=== PATIENT | female | born 1980 ===

== ENCOUNTER 2017-01-18 14:55 | Emergency (ER) | payer OTHER ==
[2017-01-18 14:55] VITALS: BMI 30.4
[2017-01-18 15:06] VITALS: BP 118/79; PULSE 77; RESP 16; TEMP 98.2; O2SAT 97
[2017-01-18] MEDS ORDERED: Lidocaine 1% Inj (20ml) IJ STA (15:13)
--- NOTE | 2017-01-18 15:13 | ED PDOC ---
HPI: Wound Care - HPI Time Seen by Provider: 01/18/17 14:56 Chief Complaint (Nursing): Abnormal Skin Integrity Chief Complaint (Provider): Laceration to right thumb History Per: Patient Exam Limitations: no limitations Onset/Duration Of Symptoms: Hrs (x7-8) Current Symptoms Are (Timing): Still Present Additional Complaint(s): Nury Woodward is a 36 year old female presenting to the ED for an evaluation of a laceration to the inner aspect of her right thumb occurring approximately around 7-8 AM this morning prior to arrival while the patient was washing a cup of glass in the sink. The patient reports pain to her right thumb. She denies taking anything for the pain. Of note, the patient is right hand dominant and Tetanus is up to date. PMD: Bhargav Marshall MD Past Medical History Reviewed: Historical Data, Nursing Documentation, Vital Signs Vital Signs: Last Vital Signs Temp 98.2 F 01/18/17 15:03 Pulse 77 01/18/17 15:03 Resp 16 01/18/17 15:03 BP 118/79 01/18/17 15:03 Pulse Ox 97 01/18/17 15:03 - Medical History PMH: HIV Denies: Chronic Kidney Disease - Surgical History Surgical History: Appendectomy - Family History Family History: States: Unknown Family Hx - Home Medications Home Medications: Ambulatory Orders Medication Instructions Recorded Darunavir Ethanolate [Prezista] 600 mg PO BID 06/12/16 Dolutegravir Sodium [Tivicay] 50 mg PO BID 06/12/16 Ritonavir [Norvir] 100 mg PO BID 06/12/16 Terbinafine HCl [Terbinafine HCl] 250 mg PO DAILY 06/12/16 - Allergies Allergies/Adverse Reactions: Allergies Allergy/AdvReac Type Severity Reaction Status Date / Time sulfamethoxazole Allergy RASH Verified 04/08/16 08:14 [From Bactrim] trimethoprim [From Bactrim] Allergy RASH Verified 04/08/16 08:14 Review of Systems ROS Statement: Except As Marked, All Systems Reviewed And Found Negative Musculoskeletal: Positive for: Hand Pain (laceration to inner aspect of right thumb associated with pain ) Physical Exam - Reviewed Nursing Documentation Reviewed: Yes Vital Signs Reviewed: Yes - Physical Exam Appears: Positive for: Non-toxic, No Acute Distress Head Exam: Positive for: ATRAUMATIC, NORMOCEPHALIC Extremity: Positive for: Normal ROM (full ROM to right thumb ), Deformity ( laceration lunar shaped with partial thickness; no active bleeding; 1 inch long) , Swelling (minor swelling noted to inner aspect of right thumb). Negative for : Other (no visible foreign body noted ) Neurologic/Psych: Positive for: Alert, Oriented - ECG O2 Sat by Pulse Oximetry: 97 (RA) Pulse Ox Interpretation: Normal Procedure: Wound Repair - Time Out Time Out: Side verified, Site verified, Patient ID confirmed, Sterile procedures obs. - Consent Obtained Consent obtained: Verbal - Performed by Performed by: Mid-level Provider - Indications Indication(s):: Laceration - Location Finger:: Right, Thumb (inner aspect) Dimensions Length cm: 1 inch Depth:: Epidermis - Anesthetic Technique Anesthetic Technique: Local (3.5cc) Local/Regional Anesthetic:: Lidocaine 1% - Debris Debris:: None - Irrigated Irrigated with ml of normal saline: 100 ccs of betadiene - Complexity Complexity:: Simple (one layer) (interrupted) - Wound repair method Sutures:: # (8), Size (5-0), Type (nylon) - Patient tolerated procedure Patient Tolerated Procedure:: Well (splint provided) Medical Decision Making Medical Decision Making: Time: 14:56 Impression: Laceration to inner aspect of right thumb Plan: * Wound Care * X-ray to rule out foreign body * Lidocaine 1% (20 ml) * [RAD] Hand Right 3 Views Instructed patient to return to ED in 8 days for suture removal. Wound care instructions given. Patient tolerated procedure well. Scribe Attestation: Documented by Chioma Lo, acting as a scribe for Joana De La Vega PA-C. Provider Scribe Attestation: All medical record entries made by the Scribe were at my direction and personally dictated by me. I have reviewed the chart and agree that the record accurately reflects my personal performance of the history, physical exam, medical decision making, and the department course for this patient. I have also personally directed, reviewed, and agree with the discharge instructions and disposition. Disposition - Clinical Impression Clinical Impression: Laceration - Patient ED Disposition Is Patient to be Admitted: No Counseled Patient/Family Regarding: Studies Performed, Diagnosis, Need For Followup, Rx Given - Disposition Referrals: Bin Schaeffer MD [Medical Doctor] - Disposition: Routine/Home Disposition Time: 13:36 Condition: STABLE Additional Instructions: keep area dry keep splint on to prevent suture from coming apart return in 7-8days for removal. do not apply to tightly of compression on area-it will cause an infection allow air to be exposed to area oxygen will help heal the wound. mantener seco el asif mantener la frula para evitar que la sutura se separe vuelta en 7-8days para la eliminacin. no se aplique fuertemente a la compresin en el asif: causar vijay infeccin permitir que el aire sea expuesto al oxgeno del asif ayudar a curar la herida. Instructions: Care For Your Stitches (ED), Laceration (ED) Forms: [employer] (Indonesian), [facility] ED School/Work Excuse Print Language: CHINESE
[2017-01-18] MEDS ORDERED: Lidocaine 1% Inj (20ml) ONE (15:14)
--- NOTE | 2017-01-18 16:06 | RAD ---
PROCEDURE: Right Hand Radiographs. HISTORY: trauma attn fifth digit COMPARISON: None available. FINDINGS: BONES: No acute displaced fracture. JOINTS: No dislocation. SOFT TISSUES: Unremarkable. No evidence of radiopaque foreign body. OTHER FINDINGS: None. IMPRESSION: No acute displaced fracture, dislocation, or significant joint effusion identified. If symptoms persist, or if there is continued clinical concern, x-ray follow-up in 7-10 days should be considered.
== END 2017-01-18 16:36 | disposition home or self-care (01) ==
LOC: H.ER 14:55
DX: S61.011A Laceration without foreign body of right thumb without damage to nail, initial encounter (principal); W25.XXXA Contact with sharp glass, initial encounter; Y92.000 Kitchen of unspecified non-institutional (private) residence as the place of occurrence of the external cause

== ENCOUNTER 2017-01-25 13:37 | Emergency (ER) | payer OTHER, SELFPAY ==
[2017-01-25 13:37] VITALS: BMI 30.4
[2017-01-25 13:46] VITALS: BP 131/63; PULSE 99; RESP 16; TEMP 97.3; O2SAT 99
--- NOTE | 2017-01-25 14:01 | ED PDOC ---
HPI: Wound Care - HPI Time Seen by Provider: 01/25/17 13:47 Chief Complaint (Nursing): Suture/Staple Removal History Per: Patient Additional Complaint(s): Pt. had sutures placed in the R hand 7 days ago and is now here for suture removal. Denies pain, fever, discharge. Past Medical History Vital Signs: Last Vital Signs Temp 97.3 F L 01/25/17 13:44 Pulse 99 H 01/25/17 13:44 Resp 16 01/25/17 13:44 BP 131/63 01/25/17 13:44 Pulse Ox 99 01/25/17 13:44 - Medical History PMH: HIV Denies: Chronic Kidney Disease - Surgical History Surgical History: Appendectomy - Family History Family History: States: Unknown Family Hx - Immunization History Hx Tetanus Toxoid Vaccination: Yes - Home Medications Home Medications: Ambulatory Orders Medication Instructions Recorded Darunavir Ethanolate [Prezista] 600 mg PO BID 06/12/16 Dolutegravir Sodium [Tivicay] 50 mg PO BID 06/12/16 Ritonavir [Norvir] 100 mg PO BID 06/12/16 Terbinafine HCl [Terbinafine HCl] 250 mg PO DAILY 06/12/16 - Allergies Allergies/Adverse Reactions: Allergies Allergy/AdvReac Type Severity Reaction Status Date / Time sulfamethoxazole Allergy RASH Verified 04/08/16 08:14 [From Bactrim] trimethoprim [From Bactrim] Allergy RASH Verified 04/08/16 08:14 Physical Exam - Physical Exam Appears: Positive for: Well, Non-toxic, No Acute Distress Skin: Positive for: Normal Color, Warm, DRY Pulses-Radial (R): 2+ Extremity: Positive for: Other (R palm with hearing sutured wound without erythema, discharge, or swelling; minimal dehisence on medial portion) - ECG O2 Sat by Pulse Oximetry: 99 - Progress ED Course And Treament: Sutures removed by PA. 3 sutures not removed. Disposition - Clinical Impression Clinical Impression: Visit for suture removal, Visit for wound check - Patient ED Disposition Is Patient to be Admitted: No - Disposition Disposition: Routine/Home Disposition Time: 14:00 Condition: STABLE Additional Instructions: Return to ED in 2 days for wound check and suture removal. Instructions: Care For Your Stitches (ED), Stitches Removal (ED) Forms: [employer] (Qatari) Print Language: KOREAN
== END 2017-01-25 14:14 | disposition home or self-care (01) ==
LOC: H.ER 13:37
DX: Z48.02 Encounter for removal of sutures (principal)

== ENCOUNTER 2017-01-27 11:35 | Emergency (ER) | payer SELFPAY ==
[2017-01-27 11:35] VITALS: BMI 30.4
[2017-01-27 12:29] VITALS: PULSE 72; RESP 18; TEMP 97.8; O2SAT 99
--- NOTE | 2017-01-27 12:54 | ED PDOC ---
HPI: Wound Care - HPI Time Seen by Provider: 01/27/17 12:17 Chief Complaint (Nursing): Suture/Staple Removal Chief Complaint (Provider): Suture/Staple Removal History Per: Patient Exam Limitations: no limitations Onset/Duration Of Symptoms: Days Current Symptoms Are (Timing): Still Present Location Of Injury: Right: Hand Additional Complaint(s): Nury is a 36 y/o female who returns to the ED for suture removal. Denies any associated fever or redness near the site. Records demonstrate that on 01/18 she had 8 sutures placed to the right hand. Patient returned to the ED on 01/25 for suture removal, and only 3 sutures were left in place. PMD: Bhargav Marshall Past Medical History Reviewed: Historical Data, Nursing Documentation, Vital Signs Vital Signs: Last Vital Signs Temp 97.8 F 01/27/17 12:25 Pulse 72 01/27/17 12:25 Resp 18 01/27/17 12:25 BP Pulse Ox 99 01/27/17 12:25 - Medical History PMH: HIV Denies: Chronic Kidney Disease - Surgical History Surgical History: Appendectomy - Family History Family History: States: Unknown Family Hx - Social History Current smoker - smoking cessation education provided: No Alcohol: None Drugs: Denies - Immunization History Hx Tetanus Toxoid Vaccination: Yes - Home Medications Home Medications: Ambulatory Orders Medication Instructions Recorded Darunavir Ethanolate [Prezista] 600 mg PO BID 06/12/16 Dolutegravir Sodium [Tivicay] 50 mg PO BID 06/12/16 Ritonavir [Norvir] 100 mg PO BID 06/12/16 Terbinafine HCl [Terbinafine HCl] 250 mg PO DAILY 06/12/16 - Allergies Allergies/Adverse Reactions: Allergies Allergy/AdvReac Type Severity Reaction Status Date / Time sulfamethoxazole Allergy RASH Verified 04/08/16 08:14 [From Bactrim] trimethoprim [From Bactrim] Allergy RASH Verified 04/08/16 08:14 Review of Systems ROS Statement: Except As Marked, All Systems Reviewed And Found Negative Constitutional: Negative for: Fever Skin: Positive for: Other (Sutures to right thumb) Physical Exam - Reviewed Nursing Documentation Reviewed: Yes Vital Signs Reviewed: Yes - Physical Exam Appears: Positive for: Well, Non-toxic, No Acute Distress Head Exam: Positive for: ATRAUMATIC, NORMAL INSPECTION, NORMOCEPHALIC Skin: Positive for: Normal Color, Warm, Dry Extremity: Positive for: Normal ROM, Other ([address] on right thumb. Clean, dry, intact. No drainage or erythema). Negative for: Tenderness, Swelling Neurologic/Psych: Positive for: Alert, Oriented - ECG O2 Sat by Pulse Oximetry: 99 (RA) Pulse Ox Interpretation: Normal Medical Decision Making Medical Decision Making: Clinical Impression: Encounter for suture removal Time: 12:56 The remaining 3 sutures were removed by me, using suture removal kit and 11 blade. Patient provided with instructions for wound care. Medically stable for discharge home. Scribe Attestation: Documented by Jenny Torres, acting as a scribe for Aziza Hand PA-C Provider Scribe Attestation: All medical record entries made by the Scribe were at my direction and personally dictated by me. I have reviewed the chart and agree that the record accurately reflects my personal performance of the history, physical exam, medical decision making, and the department course for this patient. I have also personally directed, reviewed, and agree with the discharge instructions and disposition. Disposition - Clinical Impression Clinical Impression: Removal of suture - Patient ED Disposition Is Patient to be Admitted: No Counseled Patient/Family Regarding: Diagnosis, Need For Followup - Disposition Disposition: Routine/Home Disposition Time: 12:56 Condition: STABLE Instructions: Stitches Removal (ED) Forms: [employer] (Turkish) Print Language: SERBIAN
== END 2017-01-27 13:07 | disposition home or self-care (01) ==
LOC: H.ER 11:35
DX: Z48.02 Encounter for removal of sutures (principal)

== ENCOUNTER 2018-02-08 11:50 | Emergency (ER) | payer SELFPAY ==
[2018-02-08 11:50] VITALS: BMI 30.4
[2018-02-08] MEDS ORDERED: Naproxen 500 MG TAB PO ONE ×2 (12:42→13:45)
--- NOTE | 2018-02-08 12:53 | ED PDOC ---
History of Present Illness History of Present Illness: 37 year old female with a history of HIv presents to the ED with a headache, nasal congestion and throat pain for the last 2 days. She also complains of a fever that she had last night that is resolved now. Patient reports she had the flu shot in the beginning of January. She took Mucinex or her symptoms without much relief. Her LNMP was January 18. Otherwise, denies nausea, chills, dizziness, urinary symptoms and any other medical complaint. PMD: Dr. Marshall HPI: Influenza Time Seen by Provider: 02/08/18 12:27 Chief Complaint: Headache Chief Complaint (Provider): Headache History Per: Patient Exam Limitations: no limitations Onset/Duration Of Symptoms: Days (x 2) Symptoms include: headache, sore throat, nasal congestion Past Medical History Reviewed: Historical Data, Nursing Documentation, Vital Signs Vital Signs: Last Vital Signs Temp 98 F 02/08/18 12:04 Pulse 77 02/08/18 12:04 Resp 19 02/08/18 12:04 BP 122/80 02/08/18 12:04 Pulse Ox 98 02/08/18 12:04 - Medical History PMH: HIV Denies: Chronic Kidney Disease - Surgical History Surgical History: Appendectomy - Family History Family History: States: Unknown Family Hx - Immunization History Hx Tetanus Toxoid Vaccination: Yes Hx Influenza Vaccination: Yes - Home Medications Home Medications: Ambulatory Orders Medication Instructions Recorded Darunavir Ethanolate [Prezista] 600 mg PO BID 06/12/16 Dolutegravir Sodium [Tivicay] 50 mg PO BID 06/12/16 Ritonavir [Norvir] 100 mg PO BID 06/12/16 Terbinafine HCl 250 mg PO DAILY 06/12/16 Fluticasone Propionate [Flonase] 4 spr IN DAILY #1 bottle 02/08/18 Guaifenesin/Pseudoephedrne HCl 1 ter PO Q12H PRN #10 ter 02/08/18 [Mucinex D 600 mg-60 mg] Naproxen [Naprosyn] 500 mg PO BID PRN #20 tablet 02/08/18 - Allergies Allergies/Adverse Reactions: Allergies Allergy/AdvReac Type Severity Reaction Status Date / Time sulfamethoxazole Allergy RASH Verified 02/08/18 12:04 [From Bactrim] trimethoprim [From Bactrim] Allergy RASH Verified 02/08/18 12:04 Review of Systems ROS Statement: Except As Marked, All Systems Reviewed And Found Negative Constitutional: Negative for: Chills ENT: Positive for: Nose Congestion, Throat Pain Gastrointestinal: Negative for: Nausea, Vomiting Neurological: Positive for: Headache Physical Exam - Reviewed Nursing Documentation Reviewed: Yes Vital Signs Reviewed: Yes - Physical Exam Appears: Positive for: Non-toxic, No Acute Distress Head Exam: Positive for: ATRAUMATIC, NORMAL INSPECTION, NORMOCEPHALIC Skin: Positive for: Normal Color, Warm, Dry Eye Exam: Positive for: EOMI, Normal appearance, PERRL ENT: Positive for: Normal ENT Inspection, TM Is/Are (normal). Negative for: Pharyngeal Erythema Neck: Positive for: Normal, Painless ROM, Supple Cardiovascular/Chest: Positive for: Regular Rate, Rhythm. Negative for: Murmur Respiratory: Positive for: Normal Breath Sounds. Negative for: Respiratory Distress Gastrointestinal/Abdominal: Positive for: Normal Exam, Soft. Negative for: Tenderness Extremity: Positive for: Normal ROM. Negative for: Deformity Neurologic/Psych: Positive for: Alert, Oriented. Negative for: Motor/Sensory Deficits Medical Decision Making Medical Decision Makin Impression: viral syndrome Initial Plan: --Naproxen 500 mg PO --Rapid strep --Rapid flu --Urine dip --Urine preg Scribe Attestation: Documented by Alyx Naranjo acting as a scribe for Nohemy Vazquez MD Provider Scribe Attestation: All medical record entries made by the Scribe were at my direction and personally dictated by me. I have reviewed the chart and agree that the record accurately reflects my personal performance of the history, physical exam, medical decision making, and the department course for this patient. I have also personally directed, reviewed, and agree with the discharge instructions and disposition. - ECG O2 Sat by Pulse Oximetry: 98 - Radiology X-Ray: Viewed By Me X-Ray Interpretation: No Acute Disease - Progress Re-evaluation Time: 14:10 Condition: Re-examined, Improved Disposition - Clinical Impression Clinical Impression: URI (upper respiratory infection) - Patient ED Disposition Is Patient to be Admitted: No Doctor Will See Patient In The: Office Counseled Patient/Family Regarding: Diagnosis, Need For Followup, Rx Given - Disposition Referrals: Bhargav Marshall MD [Family Provider] - Disposition: Routine/Home Disposition Time: 14:10 Condition: IMPROVED Additional Instructions: Rapid Strep and Rapid Flu negative, both Prescriptions: Fluticasone Propionate [Flonase] 4 spr IN DAILY #1 bottle Guaifenesin/Pseudoephedrne HCl [Mucinex D 600 mg-60 mg] 1 ter PO Q12H PRN #10 ter PRN Reason: cough/congestion Naproxen [Naprosyn] 500 mg PO BID PRN #20 tablet PRN Reason: Pain, Moderate (4-7) Instructions: Viral Upper Respiratory Infection, Adult (DC) Forms: [employer] (Tajik), [facility] ED School/Work Excuse Print Language: BELARUSIAN - POA Present On Arrival: None
--- NOTE | 2018-02-08 13:33 | RAD ---
Date of service: 02/08/2018 HISTORY: URI symptoms and back pain with breathing COMPARISON: Chest radiograph dated 07/28/2014. TECHNIQUE: Chest PA and lateral FINDINGS: LUNGS: No active pulmonary disease. PLEURA: No significant pleural effusion identified. No pneumothorax apparent. CARDIOVASCULAR: No aortic atherosclerotic calcification present. Normal cardiac size. No pulmonary vascular congestion. OSSEOUS STRUCTURES: No significant abnormalities. VISUALIZED UPPER ABDOMEN: Normal. OTHER FINDINGS: None. IMPRESSION: No active disease.
[2018-02-08 15:01] VITALS: BP 123/87; PULSE 73; RESP 18; TEMP 98.5; O2SAT 99
== END 2018-02-08 14:55 | disposition home or self-care (01) ==
LOC: H.ER 11:50
DX: J06.9 Acute upper respiratory infection, unspecified (principal)

== ENCOUNTER 2018-06-27 10:54 | Emergency (ER) | payer SELFPAY ==
[2018-06-27 10:55] VITALS: BMI 30.4
[2018-06-27 11:25] VITALS: BP 147/77; PULSE 115; RESP 18; TEMP 98.3; O2SAT 99
[2018-06-27] MEDS ORDERED: Naproxen 500 MG TAB PO STA (11:33)
--- NOTE | 2018-06-27 11:37 | ED PDOC ---
Lower Extremity Pain/Injury Time Seen by Provider: 06/27/18 10:59 Chief Complaint (Nursing): Lower Extremity Problem/Injury History Per: Patient Onset/Duration Of Symptoms: Days (1) Current Symptoms Are (Timing): Still Present Severity: Moderate Additional Complaint(s): Sudden sharp pain left knee when flexing knee last night. [place] "click" followed by pain and swelling. Denies calf pain Past Medical History Vital Signs: Last Vital Signs Temp 98.3 F 06/27/18 11:23 Pulse 115 H 06/27/18 11:23 Resp 18 06/27/18 11:23 BP 147/77 06/27/18 11:23 Pulse Ox 99 06/27/18 11:23 - Medical History PMH: HIV Denies: Chronic Kidney Disease - Surgical History Surgical History: Appendectomy - Family History Family History: States: Unknown Family Hx - Immunization History Hx Tetanus Toxoid Vaccination: Yes Hx Influenza Vaccination: Yes - Home Medications Home Medications: Ambulatory Orders Medication Instructions Recorded Darunavir Ethanolate [Prezista] 600 mg PO BID 06/12/16 Dolutegravir Sodium [Tivicay] 50 mg PO BID 06/12/16 Ritonavir [Norvir] 100 mg PO BID 06/12/16 Terbinafine HCl 250 mg PO DAILY 06/12/16 Fluticasone Propionate [Flonase] 4 spr IN DAILY #1 bottle 02/08/18 Guaifenesin/Pseudoephedrne HCl 1 ter PO Q12H PRN #10 ter 02/08/18 [Mucinex D 600 mg-60 mg] Naproxen [Naprosyn] 500 mg PO BID PRN #20 tablet 02/08/18 Naproxen [Naprosyn] 500 mg PO Q12H #20 tab 06/27/18 traMADol [Ultram] 50 mg PO Q8 #10 tab 06/27/18 - Allergies Allergies/Adverse Reactions: Allergies Allergy/AdvReac Type Severity Reaction Status Date / Time sulfamethoxazole Allergy RASH Verified 02/08/18 12:04 [From Bactrim] trimethoprim [From Bactrim] Allergy RASH Verified 02/08/18 12:04 Review of Systems Constitutional: Negative for: Fever Musculoskeletal: Positive for: Other (Knee pain) Neurological: Negative for: Weakness, Numbness Physical Exam - Physical Exam Appears: Positive for: Non-toxic, No Acute Distress Skin: Positive for: Normal Color, Warm, DRY Extremity: Positive for: Other (Left knee with swelling medially and laterally with possible effusion. No rythema or warmth. ROM limited by swelling. Tenderness medially and laterally. No calf pain or swelling) Neurological/Psych: Positive for: Awake, Alert. Negative for: Motor/Sensory Deficits - ECG O2 Sat by Pulse Oximetry: 99 Disposition - Clinical Impression Clinical Impression: Knee sprain - Patient ED Disposition Is Patient to be Admitted: No Counseled Patient/Family Regarding: Studies Performed, Diagnosis, Need For Followup, Rx Given - Disposition Referrals: Jennifer Mckenna MD [Staff Provider] - Disposition: Routine/Home Disposition Time: 12:50 Condition: FAIR Prescriptions: Naproxen [Naprosyn] 500 mg PO Q12H #20 tab traMADol [Ultram] 50 mg PO Q8 #10 tab Instructions: Knee Sprain (DC) Forms: [employer] (Iraqi) Print Language: KOREAN
[2018-06-27] MEDS ORDERED: Naproxen 500 MG TAB PO ONE (11:49)
--- NOTE | 2018-06-27 12:48 | RAD ---
Date of service: 06/27/2018 PROCEDURE: Left Knee Radiographs. HISTORY: Pain. COMPARISON: None. FINDINGS: BONES: Three views of the left knee were performed. Very mild degenerative changes are noted. A small knee joint effusion is not excluded. No fracture is seen. No lytic process is noted. No chondrocalcinosis is seen. Tibial plateaus are intact. JOINTS: See above. JOINT EFFUSION: See above. OTHER FINDINGS: None. IMPRESSION: No evidence of fracture.
== END 2018-06-27 13:31 | disposition home or self-care (01) ==
LOC: H.ER 10:54
DX: S83.92XA Sprain of unspecified site of left knee, initial encounter (principal); X50.9XXA Other and unspecified overexertion or strenuous movements or postures, initial encounter; Z88.1 Allergy status to other antibiotic agents; Z88.2 Allergy status to sulfonamides